=== PATIENT | male | born 1975 | race Caucasian/White ===

== ENCOUNTER 2017-06-27 17:21 | Emergency (ER) | payer BC ==
[~2017-06-27] VITALS: Ht 195.5 cm; Wt 136.1 kg
[~2017-06-27 17:21] MED LIST: CLARITIN10 MG PO; IBU800 M1 PO; NKHM; NYSTATIN AND TR1 CRE T; ZITHROMAX Z PA250 MG PO
[2017-06-27] MEDS ORDERED: Tobrex Ophth S2.5 ML OPH (17:33)
[2017-06-27] MEDS ORDERED: NAPROSYN500 MG PO (17:33)
== END 2017-06-27 17:39 | disposition home or self-care (01) ==
LOC: ED 17:21
DX: S05.02XA Injury of conjunctiva and corneal abrasion without foreign body, left eye, initial encounter (principal); R03.0 Elevated blood-pressure reading, without diagnosis of hypertension; Z88.0 Allergy status to penicillin; Z88.8 Allergy status to other drugs, medicaments and biological substances; X58.XXXA Exposure to other specified factors, initial encounter; Y93.89 Activity, other specified; Y92.89 Other specified places as the place of occurrence of the external cause; Y99.9 Unspecified external cause status

== ENCOUNTER 2017-07-23 15:53 | Emergency (ER) | payer BC ==
[~2017-07-23] VITALS: Ht 195.5 cm; Wt 136.1 kg
[~2017-07-23 15:53] MED LIST changes: +NAPROSYN500 MG PO; +Tobrex Ophth S2.5 ML OPH
[2017-07-23] MEDS ORDERED: CLINDAMYCIN HC300 MG PO (17:18)
[2017-07-23] MEDS ORDERED: ANAPROX DS550 MG PO (17:18)
== END 2017-07-23 17:23 | disposition home or self-care (01) ==
LOC: ED 15:53
DX: S81.812A Laceration without foreign body, left lower leg, initial encounter (principal); Z88.0 Allergy status to penicillin; Z88.8 Allergy status to other drugs, medicaments and biological substances; W23.0XXA Caught, crushed, jammed, or pinched between moving objects, initial encounter; Y93.89 Activity, other specified; Y92.89 Other specified places as the place of occurrence of the external cause; Y99.9 Unspecified external cause status